=== PATIENT | female | born 1985 | race Caucasian/White ===

== ENCOUNTER → 2017-02-02 | Outpatient (CLI) | payer BC ==
[~2017-02-02] MED LIST: ACYC400T PO; BCPILLS PO; SUMA50TA15 PO; TRIA37.5 PO
[2017-02-02 14:52] LABS: BASO % 0.6 %; BASO ABS # 0.06 K/uL (0-0.2); COMPLETE YES; EOS % 2.4 %; HEMATOCRIT 40.7 % (37-47); IG% 0.2 %; LYMPH % 23.9 %; LYMPH ABS # 2.37 K/uL (1.2-3.4); MEAN CELL VOLUME 84.3 fL (80-100); MEAN CORPUSCULAR HEMOGLOBIN 28.4 pg (25-34); MEAN CORPUSCULAR HGB CONC 33.7 g/dl (32-36); MEAN PLATELET VOLUME 10.6 fL (7.4-10.4); NEUT % 63.9 %; PLATELET COUNT 337 K/uL (130-400); RED BLOOD COUNT 4.83 M/uL (4.2-5.4); WHITE BLOOD COUNT 9.93 K/uL (4.8-10.8)
[2017-02-02 14:53] LABS: ALT/SGPT 23 U/L (12-78); AST/SGOT 8 U/L (15-37); BLOOD UREA NITROGEN 11 mg/dl (7-18); BUN/CREATININE RATIO 11.2 (10-20); CALCIUM 8.7 mg/dl (8.5-10.1); CARBON DIOXIDE 25 mmol/L (21-32); CHLORIDE 108 mmol/L (98-107); GLUCOSE 88 mg/dl (70-99); POTASSIUM 3.6 mmol/L (3.5-5.1); SODIUM 141 mmol/L (136-145)
[2017-02-02 15:03] LABS: ALB/GLOB RATIO 0.9 (0.9-2); ALKALINE PHOSPHATASE 72 U/L (45-117)
== END | disposition home or self-care (01) ==
LOC: C.LAB1850 13:27
PROVIDERS: ATTEND Internal Medicine
DX: M79.89 Other specified soft tissue disorders (principal)

== ENCOUNTER 2017-03-22 18:08 | Inpatient (IN) | payer BC ==
[~2017-03-22] VITALS: Ht 157.5 cm; Wt 97.5 kg
[~2017-03-22 18:08] MED LIST changes: -ACYC400T PO; -SUMA50TA15 PO
[2017-03-22] MEDS ORDERED: ONDANSETRON INJ 2 MG/ML 2 ML VIAL IV STA ×2 (18:39→21:15)
[2017-03-22] MEDS ORDERED: MoRPHine SULFATE 10 MG/ML CARP/VIAL IV STA (18:39)
[2017-03-22] MEDS ORDERED: SODIUM CHLORIDE 0.9% 1000ML 1,000 ML IV ONE (18:45)
[2017-03-22] MEDS ORDERED: ACETAMINOPHEN IV 100 ML IV ONE (18:45)
[2017-03-22] MEDS ORDERED: SUMA50TA15 PO (19:32)
--- NOTE | 2017-03-22 19:44 | DIAGNOSTIC IMAGING REPORT ---
HEAD CT NONCONTRAST CT DOSE: 691.05 mGy.cm HISTORY: Worst headache of life TECHNIQUE: Multiaxial CT images of the head were performed without the use of intravenous contrast. Comparison: None. Findings: The paranasal sinuses and mastoid air cells are clear. The calvarium and skull base are intact. The ventricles and sulci are within normal limits. There is no mass, hematoma, midline shift, or acute infarct. Impression: No acute intracranial abnormality. Electronically signed by: Joshua Sheth M.D. 03/22/2017 7:43 PM Dictated Date/Time: 03/22/2017 7:41 PM
[2017-03-22 20:04] LABS: URINE APPEARANCE CLEAR (CLEAR); URINE BILIRUBIN NEG (NEG); URINE COLOR YELLOW; URINE NITRITE NEG (NEG); URINE PH 7.5 (4.5-7.5); URINE SPECIFIC GRAVITY 1.003 (1.000-1.030); UROBILINOGEN NEG (NEG); ZZUR CULT IF INDIC CLEAN CATCH NO
[2017-03-22 20:13] LABS: MANUAL MICROSCOPIC REQUIRED? NO; REVIEW REQ? NO
[2017-03-22 20:20] LABS: HEMATOCRIT 39.5 % (37-47); MEAN CELL VOLUME 85.5 fL (80-100); MEAN CORPUSCULAR HEMOGLOBIN 28.4 pg (25-34); MEAN CORPUSCULAR HGB CONC 33.2 g/dl (32-36); PLATELET COUNT 322 K/uL (130-400); RED BLOOD COUNT 4.62 M/uL (4.2-5.4)
[2017-03-22] MEDS ORDERED: HYDROmorphone INJ 0.5 MG/0.5 ML SYR IV STA (20:24)
[2017-03-22 20:38] LABS: BUN/CREATININE RATIO 10.8 (10-20); CALCIUM 8.6 mg/dl (8.5-10.1); CREATININE 0.86 mg/dl (0.60-1.20); MAGNESIUM 1.9 mg/dl (1.8-2.4); POTASSIUM 3.1 mmol/L (3.5-5.1)
[2017-03-22 20:42] LABS: BASO % 0.8 %; BASO ABS # 0.08 K/uL (0-0.2); COMPLETE YES; IG% 0.2 %; LYMPH % 21.1 %; LYMPH ABS # 2.05 K/uL (1.2-3.4); MONO % 7.7 %; NEUT % 69.2 %
[2017-03-22 20:43] LABS: PARTIAL THROMBOPLASTIN RATIO 1.1; PROTHROMBIN TIME (PATIENT) 10.5 SECONDS (9.0-12.0)
[2017-03-22 20:49] LABS: ALB/GLOB RATIO 0.9 (0.9-2); THYROID STIMULATING HORMONE 1.32 uIu/ml (0.300-4.500)
[2017-03-22 21:43] LABS: LYME DISEASE AB IGG NEG (NEG); LYME DISEASE AB IGM NEG (NEG)
--- NOTE | 2017-03-22 22:15 | EMERGENCY ROOM VISIT NOTE ---
ED Visit Note First contact with patient: 23:40 Lumbar Puncture Indication: Intractable headache. Verbal consent was obtained after the risks and benefits were explained. The risks of the procedure are less than the risks of NOT performing the procedure. A time out was taken and the correct patient and site identified. The patient was placed in the left lateral decubitus position and the back was prepped with betadine and draped in the standard fashion. The L3 intervertebral space was identified, anesthetized locally with 1% lidocaine without epinephrine, and the 20 gauge spinal needle was inserted through the skin with the bevel parallel to the dural fibers. After multiple attempts, no fluid was obtained. Procedure was discontinued. Patient will undergo lumbar puncture under fluoroscope with Dr. Sheth (Radiology) A bandaid was placed and the patient was placed in the supine position. The patient tolerated the procedure well and there were no complications.
[2017-03-22 23:07] LABS: CSF CHEMISTRY TUBE # 2
[2017-03-22 23:16] LABS: CSF TOTAL PROTEIN 63.9 mg/dl (15.0-45.0)
[2017-03-22 23:26] LABS: CSF COLOR COLORLESS
[2017-03-22 23:27] LABS: CSF APPEARANCE CLEAR; CSF XANTHOCHROMIC NO XANTHOCHROMIA
[2017-03-22] MEDS ORDERED: VANCOMYCIN INJ 1,000 MG in SODIUM CHLORIDE 0.9% 250ML 250 ML IV STA (23:30)
[2017-03-22] MEDS ORDERED: CEFTRIAXONE SOD INJ 1 GM ADDVIAL IV STA (23:30)
[2017-03-22] MEDS ORDERED: CEFTRIAXONE SOD INJ 2000 MG in DEXTROSE 5% 50ML IV STA (23:40)
[2017-03-23] VITALS (7 sets, daily range): BP systolic 103–117; BP diastolic 64–75; PULSE 73–96; TEMP 36.5–37.3; O2SAT 92–97; Ht 157.5 cm; Wt 97.5 kg
[2017-03-23] MEDS ORDERED: DEXAMETHASONE SOD INJ 4 MG/ML VIAL IV STA (00:01)
[2017-03-23] MEDS ORDERED: ACYCLOVIR SOD IV STA (00:08)
[2017-03-23] MEDS ORDERED: DEXTROSE 5% IV STA (00:08)
[2017-03-23] MEDS ORDERED: HYDROmorphone INJ 0.5 MG/0.5 ML SYR IV PRN (00:15)
[2017-03-23] MEDS ORDERED: ACETAMINOPHEN 325 MG TAB PO PRN (00:15)
[2017-03-23] MEDS ORDERED: HYDROmorphone INJ 2 MG/ML SYR/VIAL IV PRN (00:15)
[2017-03-23] MEDS ORDERED: DEXTROSE 5% IV SCH (00:15)
[2017-03-23] MEDS ORDERED: HYDROmorphone INJ 1 MG/ML SYR IV PRN (00:15)
[2017-03-23] MEDS ORDERED: ONDANSETRON INJ 2 MG/ML 2 ML VIAL IV PRN (00:15)
[2017-03-23] MEDS ORDERED: ZOLPIDEM TARTRATE 5 MG TAB PO PRN (00:15)
[2017-03-23] MEDS ORDERED: ACYCLOVIR SOD IV SCH (00:15)
[2017-03-23] MEDS ORDERED: VANCOMYCIN 1GM/270ML NSS ONE (00:23)
--- NOTE | 2017-03-23 00:24 | EMERGENCY ROOM VISIT NOTE ---
History First contact with patient: 18:34 Chief Complaint: HEADACHE Stated Complaint: MIGRAINE LIKE SYM,CAN'T OPEN EYE,LIGHT SENSITIVITY History of Present Illness The patient is a 32 year old female who presents to the Emergency Room with complaints of severe headache and neck pain that began approximately 16 hours ago. The patient states that she awoke from sleep with her headache. She does not have a history of migraines and states this is the worst headache she has ever had. She is light sensitive. The patient does not report fever or chills. No chest pain, chest tightness, shortness of breath, or abdominal pain. No rash. The patient went to her primary care physician today and was given 2 doses of Imitrex which did not improve her symptoms. The patient now presents to the ER for further management. She rates her current discomfort a 10/10. Review of Systems More than 10 systems were reviewed and otherwise negative with the exception of history of present illness. Past Medical/Surgical History Hypertension Family History No pertinent family history Social History Smoking Status: Never Smoker Alcohol Use: occasionally Marital Status: Housing Status: lives with family Occupation Status: employed Current/Historical Medications Scheduled Sumatriptan Succinate (Imitrex), 50 MG PO PRN Triamterene/Hctz (Dyazide 37.5MG/25MG), 1 TAB PO DAILY Allergies Coded Allergies: Pertussis Vaccine (Verified Allergy, Severe, AIRWAY CLOSES, HIVES, EDEMA, 03/22/17) Sulfa Drugs (Verified Allergy, Severe, AIRWAY CLOSES, 03/22/17) Physical Exam Vital Signs Date Time Temp Pulse Resp B/P Pulse Ox O2 Delivery O2 Flow Rate FiO2 03/22/17 23:00 70 16 110/67 96 Room Air 03/22/17 22:03 64 16 125/76 96 Room Air 03/22/17 20:32 81 16 115/78 95 Room Air 03/22/17 19:29 86 24 139/82 100 Room Air 03/22/17 18:21 37.4 95 20 123/68 98 Room Air Pain Rating (0-10): 4.0 Physical Exam VITALS: Vitals are noted on the nurse's note and reviewed by myself. Vital signs stable. GENERAL: Ill appearing white female resting in a darkened emergency department room. She is moderate to severe discomfort secondary to her stated complaint. She is unable to be comfortable in her ER bed. She is photophobic. HEAD: Normocephalic atraumatic. NECK: Supple without nuchal rigidity. No lymphadenopathy. No thyromegaly. Cervical spine is with generalized tenderness. HEART: Regular rate and rhythm without murmurs gallops or rubs. LUNGS: Clear to auscultation bilaterally without wheezes, rales or rhonchi. No retractions or accessory muscle use. ABDOMEN: Positive normal bowel sounds x 4. Soft, nontender, without masses or organomegaly. No guarding or rebound tenderness. MUSCULOSKELETAL: No muscle atrophy, erythema, or edema noted. Full range of motion without joint tenderness in all extremities. NEURO: Patient was alert and oriented to person place and time. CN II through XII grossly intact. Deep tendon reflexes 2+ throughout. No focal neurological deficits SKIN: The skin was without rashes, erythema, edema, or bruising. Capillary reflex less than 2 seconds. Medical Decision & Procedures ER Provider Diagnostic Interpretation: HEAD CT NONCONTRAST CT DOSE: 691.05 mGy.cm HISTORY: Worst headache of life TECHNIQUE: Multiaxial CT images of the head were performed without the use of intravenous contrast. Comparison: None. Findings: The paranasal sinuses and mastoid air cells are clear. The calvarium and skull base are intact. The ventricles and sulci are within normal limits. There is no mass, hematoma, midline shift, or acute infarct. Impression: No acute intracranial abnormality. Laboratory Results 03/22/17 20:06 Red Blood Count 4.62, Mean Corpuscular Volume 85.5, Mean Corpuscular Hemoglobin 28.4, Mean Corpuscular Hemoglobin Concent 33.2, Mean Platelet Volume 10.0, Neutrophils (%) (Auto) 69.2, Lymphocytes (%) (Auto) 21.1, Monocytes (%) (Auto) 7.7, Eosinophils (%) (Auto) 1.0, Basophils (%) (Auto) 0.8, Neutrophils # (Auto) 6.70, Lymphocytes # (Auto) 2.05, Monocytes # (Auto) 0.75, Eosinophils # (Auto) 0.10, Basophils # (Auto) 0.08 03/22/17 20:06 Test 03/22/17 19:20 03/22/17 20:06 03/22/17 22:46 Urine Color YELLOW Urine Appearance CLEAR (CLEAR) Urine pH 7.5 (4.5-7.5) Urine Specific [place] 1.003 (1.000-1.030) Urine Protein NEG (NEG) Urine Glucose (UA) NEG (NEG) Urine Ketones NEG (NEG) Urine Occult Blood NEG (NEG) Urine Nitrite NEG (NEG) Urine Bilirubin NEG (NEG) Urine Urobilinogen NEG (NEG) Urine Leukocyte Esterase TRACE (NEG) Urine WBC (Auto) 1-5 /hpf (0-5) Urine RBC (Auto) 0-4 /hpf (0-4) Urine Hyaline Casts (Auto) 0 /lpf (0-5) Urine Epithelial Cells (Auto) 10-20 /lpf (0-5) Urine Bacteria (Auto) NEG (NEG) Urine Test NEG (NEG) White Blood Count 9.70 K/uL (4.8-10.8) Red Blood Count 4.62 M/uL (4.2-5.4) Hemoglobin 13.1 g/dL (12.0-16.0) Hematocrit 39.5 % (37-47) Mean Corpuscular Volume 85.5 fL (80-100) Mean Corpuscular Hemoglobin 28.4 pg (25-34) Mean Corpuscular Hemoglobin Concent 33.2 g/dl (32-36) Platelet Count 322 K/uL (130-400) Mean Platelet Volume 10.0 fL (7.4-10.4) Neutrophils (%) (Auto) 69.2 % Lymphocytes (%) (Auto) 21.1 % Monocytes (%) (Auto) 7.7 % Eosinophils (%) (Auto) 1.0 % Basophils (%) (Auto) 0.8 % Neutrophils # (Auto) 6.70 K/uL (1.4-6.5) Lymphocytes # (Auto) 2.05 K/uL (1.2-3.4) Monocytes # (Auto) 0.75 K/uL (0.11-0.59) Eosinophils # (Auto) 0.10 K/uL (0-0.5) Basophils # (Auto) 0.08 K/uL (0-0.2) RDW Standard Deviation 39.9 fL (36.4-46.3) RDW Coefficient of Variation 12.8 % (11.5-14.5) Immature Granulocyte % (Auto) 0.2 % Immature Granulocyte # (Auto) 0.02 K/uL (0.00-0.02) Red Blood Cell Morphology Unremarkable Prothrombin Time 10.5 SECONDS (9.0-12.0) Prothromb Time International Ratio 1.0 (0.9-1.1) Activated Partial Thromboplast Time 28.6 SECONDS (21.0-31.0) Partial Thromboplastin Ratio 1.1 Anion Gap 8.0 mmol/L (3-11) Est Creatinine Clear Calc Drug Dose 97.6 ml/min Estimated GFR () 103.6 Estimated GFR (Non- 89.4 BUN/Creatinine Ratio 10.8 (10-20) Calcium Level 8.6 mg/dl (8.5-10.1) Magnesium Level 1.9 mg/dl (1.8-2.4) Total Bilirubin 0.6 mg/dl (0.2-1) Aspartate Amino Transf (AST/SGOT) 12 U/L (15-37) Alanine Aminotransferase (ALT/SGPT) 27 U/L (12-78) Alkaline Phosphatase 82 U/L (45-117) Total Protein 7.1 gm/dl (6.4-8.2) Albumin 3.4 gm/dl (3.4-5.0) Globulin 3.7 gm/dl (2.5-4.0) Albumin/Globulin Ratio 0.9 (0.9-2) Thyroid Stimulating Hormone (TSH) 1.320 uIu/ml (0.300-4.500) Lyme Disease IgG Antibody NEG (NEG) Lyme Disease IgM Antibody NEG (NEG) CSF Color COLORLESS CSF Appearance CLEAR CSF WBC 100 /uL (0-5) CSF RBC 7 /uL (0) CSF Xanthrochromic NO XANTHOCHROMIA CSF Cell Count Tube # 4 CSF Chemistry Tube # 2 CSF Glucose 54 mg/dl (40-70) CSF Total Protein 63.9 mg/dl (15.0-45.0) Medications Administered Medications (Trade) Dose Ordered Sig/Les Route Start Time Stop Time Status Last Admin Dose Admin Sodium Chloride (Nss 1000ml) 1,000 ml @ 999 mls/hr Q1H1M ONCE IV 03/22/17 18:45 03/22/17 19:45 DC 03/22/17 19:19 999 MLS/HR Ondansetron HCl (Zofran Inj) 4 mg NOW STAT IV 03/22/17 18:39 03/22/17 18:41 DC 03/22/17 19:20 4 MG Morphine Sulfate 6 mg 6 mg NOW STAT IV 03/22/17 18:39 03/22/17 18:41 DC 03/22/17 19:20 6 MG Acetaminophen (Ofirmev Iv) 100 ml @ 400 mls/hr NOW ONCE IV 03/22/17 18:45 03/22/17 18:59 DC 03/22/17 19:21 400 MLS/HR Hydromorphone HCl (Dilaudid Inj) 0.5 mg NOW STAT IV 03/22/17 20:24 03/22/17 20:25 DC 03/22/17 20:32 0.5 MG Ondansetron HCl (Zofran Inj) 4 mg NOW STAT IV 03/22/17 21:15 03/22/17 21:16 DC 03/22/17 21:15 4 MG ED Course Physical exam and history were performed. Nursing notes and EMR were reviewed. Patient appears to have a severe headache that began earlier this morning. The patient appears quite uncomfortable on examination. She does not have a history of migraines and states this is the worst headache that she has ever had. The patient is afebrile and does not appear with encephalitis. IV access was established and labs were obtained. Patient was hydrated and medicated as above. CT scan was performed. The patient's blood work is as above and was reviewed. She does not have a significantly elevated white blood cell count or gross anemia, bandemia, or significant electrolyte imbalance. Transaminases were nondiagnostic. The patient CT scan is as above and does not show evidence of acute process. The patient continued to be in moderate discomfort despite being treated with morphine. Because of the collecting if her IV Dilaudid, which made her nauseated, and she did require additional Zofran. The patient case was discussed with my attending physician, Dr. Tenorio, who also independently evaluated the patient. Clinically we have concern for the patient's presentation. I had a lengthy discussion with the patient regarding a lumbar puncture, as this was felt to be the only way to rule in or rule out meningitis. I discussed the risks versus benefits of the procedure, and adequately answered both her and her 's questions. After doing this the patient did consent to the procedure. Lumbar puncture was attempted by Dr. Tenorio. Please see his note regarding the procedure. In short, there was difficulty with initial lumbar puncture, and we did elect to perform the LP under fluoroscopy. The lumbar puncture results do show an elevated protein and elevated white blood cell count in the CSF. There is no significant blood. Based on these results we have concern for meningitis. Her conjunctivae is likely viral, but culture and Gram stain are pending at the time of this dictation. The patient was started on IV Rocephin and vancomycin immediately. She was placed under contact precautions. The case was discussed with the on-call [facility] hospitalist, who agreed to evaluate the patient here in the emergency department. Please see their dictation for further patient course, plan, and disposition. The chart was completed utilizing [employer] Speech Voice Recognition Software. Grammatical errors, random word insertions, pronoun errors, and incomplete sentences are an occasional consequence of this system due to software limitations, ambient noise, and hardware issues. Any formal questions or concerns about the content, text, or information contained within the body of this dictation should be directly addressed to the provider for clarification. . Medical Decision The differential diagnosis includes, but is not limited to: acute intracranial bleed, meningitis, encephalitis, mass or mass effect, sinusitis, infection, tumor, headache, temporal arteritis and carbon monoxide exposure, and migraine. Impression Primary Impression: Meningitis Departure Information Referrals RV. Nye MD (PCP) Patient Instructions My [facility]
[2017-03-23 00:30] LABS: CSF MONONUC RELAT 71.6 %
[2017-03-23] MEDS ORDERED: VANCOMYCIN INJ 1,300 MG in SODIUM CHLORIDE 0.9% 250ML 250 ML IV STA (01:27)
[2017-03-23] MEDS: NSS + 20MEQ KCL 1000ML 1,000 ML IV SCH ×3 (02:03→20:25)
[2017-03-23] MEDS ORDERED: ACYCLOVIR CONSULT ACTIVE PRN (02:30)
[2017-03-23] MEDS ORDERED: VANCOMYCIN CONSULT ACTIVE PRN (02:45)
--- NOTE | 2017-03-23 03:36 | History and Physical ---
History & Physical Date & Time of Service: March 23, 2017 at 03:27 Chief Complaint: Hypokalemia, Meningitis Primary Care Physician: RV. Nye MD History of Present Illness Source: patient, spouse The patient is a 32-year-old female who presents to the emergency department with complaint of severe headache and neck pain that initially woke her from sleep, and that began about 16 hours prior to arrival. She has developed slight sensitivity. She was seen by her PCP today and given 2 doses of Imitrex with no improvement in symptoms. She does not usually get headaches, and reports that this is the worst headache that she's ever had. She has not had any recent travels or known sick exposures, she comes into contact with the public frequently at her job. Social History Smoking Status: Never Smoker Smokeless Tobacco Use: No Alcohol Use: none Drug Use: none Marital Status: Housing status: lives with family Occupational Status: employed Immunizations History of Influenza Vaccine: Unknown History of Tetanus Vaccine?: Unknown Multi-Drug Resistant Organisms History of MDRO: No Allergies Coded Allergies: Pertussis Vaccine (Verified Allergy, Severe, AIRWAY CLOSES, HIVES, EDEMA, 03/22/17) Sulfa Drugs (Verified Allergy, Severe, AIRWAY CLOSES, 03/22/17) Home Medications Scheduled Sumatriptan Succinate (Imitrex), 50 MG PO PRN Triamterene/Hctz (Dyazide 37.5MG/25MG), 1 TAB PO DAILY Review of Systems Constitutional: No chills, No fatigue, No fever, No problem reported, No sweats , No weakness, No weight loss Eyes: No diplopia, No discharge, No eye pain, No problem reported, No redness, No worsening of vision ENT: No dental problems, No hearing loss, No nasal symptoms, No problem reported, No sore throat, No tinnitus, No trouble swallowing, No unusual epistaxis Respiratory: No cough, No dyspnea at rest, No dyspnea on exertion, No hemoptysis, No problem reported, No shortness of breath, No sputum, No wheezing Cardiovascular: No PND, No chest pain, No claudication, No edema, No orthopnea , No palpitations, No problem reported Abdomen: No GI bleeding, No constipation, No diarrhea, No nausea, No pain, No problem reported, No vomiting Musculoskeletal: No calf pain, No joint pain, No muscle pain, No problem reported, No swelling Genitourinary - Female: No dysmenorrhea, No dysuria, No hematuria, No menorrhagia, No metrorrhagia, No , No problem reported, No rash, No urinary frequency, No urinary incontinence, No urinary retention, No urinary urgency, No vaginal bleeding, No vaginal discharge, No vaginal itching, No vulvodynia Neurologic: No balance problems, No memory loss, No numbness/tingling, No paralysis, No problem reported, No vertigo, No weakness Psychiatric: No anhedonism, No anxiety, No depression symptoms, No insomnia, No problem reported, No substance abuse Endocrine: No excessive thirst, No excessive urination, No fatigue, No problem reported Hematologic / Lymphatic: No abnormal bleeding/bruising, No clotting problems, No night sweats, No problem reported, No swollen lymph nodes Integumentary: No bleeding, No color change, No itch, No new/changing skin lesions, No problem reported, No rash Allergic / Immunologic: No environmental allergies, No food allergies, No frequent infections, No hives, No pet sensitivities, No poor healing, No problem reported, No prolonged convalescence, No seasonal allergies Physical Exam Vital Signs Date Time Temp Pulse Resp B/P Pulse Ox O2 Delivery O2 Flow Rate FiO2 03/23/17 01:31 Room Air 03/23/17 00:50 36.7 70 18 103/65 96 Room Air 03/22/17 23:00 70 16 110/67 96 Room Air 03/22/17 22:03 64 16 125/76 96 Room Air 03/22/17 20:32 81 16 115/78 95 Room Air 03/22/17 19:29 86 24 139/82 100 Room Air 03/22/17 18:21 37.4 95 20 123/68 98 Room Air General Appearance: + moderate distress Head: normocephalic, atraumatic Eyes: normal inspection, EOMI, sclerae normal, + pertinent finding (sensitive to light.) ENT: normal ENT inspection, hearing grossly normal, pharynx normal Neck: no adenopathy, thyroid normal, no JVD, no carotid bruits, trachea midline , + pertinent finding (tender on palpation posteriorly) Respiratory/Chest: chest non-tender, lungs clear, normal breath sounds, no respiratory distress, no accessory muscle use Cardiovascular: regular rate, rhythm, no edema, no gallop, no JVD, no murmur, normal peripheral pulses Abdomen/GI: normal bowel sounds, non tender, soft, no organomegaly, no pulsatile mass Back: normal inspection, no CVA tenderness, no muscle spasm, normal range of motion Extremities/Musculoskelatal: normal inspection, no calf tenderness, normal capillary refill, no pedal edema, normal range of motion, non-tender 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, no motor/sensory deficits, alert, normal mood/affect, normal reflexes, oriented x 3 Skin: normal color, warm/dry, no rash Lymphatic: no adenopathy Diagnostics Laboratory Results Results Past 24 Hours Test 03/22/17 19:20 03/22/17 20:06 03/22/17 22:46 Range/Units Urine Color YELLOW Urine Appearance CLEAR CLEAR Urine pH 7.5 4.5-7.5 Urine Specific [place] 1.003 1.000-1.030 Urine Protein NEG NEG Urine Glucose (UA) NEG NEG Urine Ketones NEG NEG Urine Occult Blood NEG NEG Urine Nitrite NEG NEG Urine Bilirubin NEG NEG Urine Urobilinogen NEG NEG Urine Leukocyte Esterase TRACE NEG Urine WBC (Auto) 1-5 0-5 /hpf Urine RBC (Auto) 0-4 0-4 /hpf Urine Hyaline Casts (Auto) 0 0-5 /lpf Urine Epithelial Cells (Auto) 10-20 0-5 /lpf Urine Bacteria (Auto) NEG NEG Urine Test NEG NEG White Blood Count 9.70 4.8-10.8 K/uL Red Blood Count 4.62 4.2-5.4 M/uL Hemoglobin 13.1 12.0-16.0 g/dL Hematocrit 39.5 37-47 % Mean Corpuscular Volume 85.5 80-100 fL Mean Corpuscular Hemoglobin 28.4 25-34 pg Mean Corpuscular Hemoglobin Concent 33.2 32-36 g/dl Platelet Count 322 130-400 K/uL Mean Platelet Volume 10.0 7.4-10.4 fL Neutrophils (%) (Auto) 69.2 % Lymphocytes (%) (Auto) 21.1 % Monocytes (%) (Auto) 7.7 % Eosinophils (%) (Auto) 1.0 % Basophils (%) (Auto) 0.8 % Neutrophils # (Auto) 6.70 1.4-6.5 K/uL Lymphocytes # (Auto) 2.05 1.2-3.4 K/uL Monocytes # (Auto) 0.75 0.11-0.59 K/uL Eosinophils # (Auto) 0.10 0-0.5 K/uL Basophils # (Auto) 0.08 0-0.2 K/uL RDW Standard Deviation 39.9 36.4-46.3 fL RDW Coefficient of Variation 12.8 11.5-14.5 % Immature Granulocyte % (Auto) 0.2 % Immature Granulocyte # (Auto) 0.02 0.00-0.02 K/uL Red Blood Cell Morphology Unremarkable Prothrombin Time 10.5 9.0-12.0 SECONDS Prothromb Time International Ratio 1.0 0.9-1.1 Activated Partial Thromboplast Time 28.6 21.0-31.0 SECONDS Partial Thromboplastin Ratio 1.1 Sodium Level 142 136-145 mmol/L Potassium Level 3.1 3.5-5.1 mmol/L Chloride Level 108 98-107 mmol/L Carbon Dioxide Level 26 21-32 mmol/L Anion Gap 8.0 3-11 mmol/L Blood Urea Nitrogen 9 7-18 mg/dl Creatinine 0.86 0.60-1.20 mg/dl Est Creatinine Clear Calc Drug Dose 97.6 ml/min Estimated GFR () 103.6 Estimated GFR (Non- 89.4 BUN/Creatinine Ratio 10.8 10-20 Random Glucose 98 70-99 mg/dl Calcium Level 8.6 8.5-10.1 mg/dl Magnesium Level 1.9 1.8-2.4 mg/dl Total Bilirubin 0.6 0.2-1 mg/dl Aspartate Amino Transf (AST/SGOT) 12 15-37 U/L Alanine Aminotransferase (ALT/SGPT) 27 12-78 U/L Alkaline Phosphatase 82 45-117 U/L Total Protein 7.1 6.4-8.2 gm/dl Albumin 3.4 3.4-5.0 gm/dl Globulin 3.7 2.5-4.0 gm/dl Albumin/Globulin Ratio 0.9 0.9-2 Thyroid Stimulating Hormone (TSH) 1.320 0.300-4.500 uIu/ml Lyme Disease IgG Antibody NEG NEG Lyme Disease IgM Antibody NEG NEG CSF Color COLORLESS CSF Appearance CLEAR CSF WBC 100 0-5 /uL CSF RBC 7 0 /uL CSF Xanthrochromic NO XANTHOCHROMIA CSF Cell Count Tube # 4 CSF Mononuclear WBCs % 71.6 % CSF Polynuclear WBCs (%) 28.4 % CSF Chemistry Tube # 2 CSF Glucose 54 40-70 mg/dl CSF Total Protein 63.9 15.0-45.0 mg/dl Microbiology Results 03/22/17 Gram Stain - Preliminary, Resulted 03/22/17 CSF Culture, Resulted Pending Diagnostic Radiology Patient Name: CHAI DODD Unit Number: [id number] Dictated: 03/22/171940 Transcribed: 03/22/171940 MS Printed Date/Time: [~ rep prt dt]/[~ rep prt tm] [~ rep ct labl] - [~ rep ct ivnm] [facility] [place] [address] Dictated: 03/22/171940 Transcribed: 03/22/171940 MS Printed Date/Time: [~ rep prt dt]/[~ rep prt tm] [~ rep ct labl] - [~ rep ct ivnm] [~ rep ct add3]] HEAD CT NONCONTRAST CT DOSE: 691.05 mGy.cm HISTORY: Worst headache of life TECHNIQUE: Multiaxial CT images of the head were performed without the use of intravenous contrast. Comparison: None. Findings: The paranasal sinuses and mastoid air cells are clear. The calvarium and skull base are intact. The ventricles and sulci are within normal limits. There is no mass, hematoma, midline shift, or acute infarct. Impression: No acute intracranial abnormality. Electronically signed by: Joshua Sheth M.D. 03/22/2017 7:43 PM Dictated Date/Time: 03/22/2017 7:41 PM The status of this report is Signed. Draft = Not yet reviewed or approved by Radiologist. Signed = Reviewed and approved by Radiologist. <AttendingPhy></AttendingPhy> <FamilyPhy>RV. Nye MD</ FamilyPhy> <PrimaryPhy>RV. Nye MD</PrimaryPhy> <UnitNumber> [id number]</UnitNumber> <VisitNumber>[id number]</VisitNumber> <PatientName> CHAI DODD</PatientName> <DateOfBirth>1985</DateOfBirth> < Location>[facility]</Location> <ServiceDate>03/22/17</ServiceDate> <MNE>ESINDI</MNE> <OrderingPhy>Jimmy Alfaro PA-C</OrderingPhy> <OrderingPhyMNE>f rep ord dr parker</ OrderingPhyMNE> <DictatingPhyMNE>f rep dict dr parker</DictatingPhyMNE> <CCListMNE> f rep ct elena</CCListMNE> <AdmittingPhyMNE>f pt admit dr parker</AdmittingPhyMNE> < AttendingPhyMNE>f pt attend dr parker</AttendingPhyMNE> <ConsultingPhyMNE>f pt consult dr parker</ConsultingPhyMNE> <FamilyPhyMNE>f pt fam dr parker</FamilyPhyMNE> <OtherPhyMNE>f pt other dr parker</OtherPhyMNE> < PrimaryPhyMNE>f pt prim care dr parker</PrimaryPhyMNE> <ReferringPhyMNE>f pt referring dr parker</ReferringPhyMNE> Impression Assessment and Plan Meningitis, likely viral--her clinical symptoms, and LP results are suggestive of meningitis. The patient be admitted to the telemetry unit for close monitoring. She's given Decadron 10 mg IV, ceftriaxone 2 g IV, vancomycin IV, and acyclovir 930 mg IV, and Dilaudid IV in the ED. She'll be continued on Decadron 4 mg IV every 6 hours, ceftriaxone 2 g IV every 12 hours, vancomycin IV per renal dosing, acyclovir 930 mg IV every 8 hours, and Dilaudid 0.5-1 mg IV every 2 hours when necessary. We'll consult infectious disease. Dehydration/hypokalemia--triamterene/HCTZ, and place on normal saline with potassium chloride 20 mEq at 100 ML's per hour. Repeat PRP and magnesium level in the a.m. Level of Care Telemetry Advanced Directives Existing Advance Directive: No Existing Living Will: No Existing Power of Runner Man: No Resuscitation Status FULL RESUSCITATION VTE Prophylaxis VTE Risk Assessment Done? Y/N: Yes Risk Level: Moderate Given or contraindicated: SCD's Social Service Consult None Apply
[2017-03-23] MEDS: DEXAMETHASONE INJ 4 MG in SYRINGE 0 ML IV SCH ×4 (06:23→23:15)
[2017-03-23 06:41] LABS: BASO % 0.2 %; BASO ABS # 0.02 K/uL (0-0.2); COMPLETE YES; HEMATOCRIT 39.7 % (37-47); IG% 0.1 %; LYMPH % 11.4 %; MEAN CELL VOLUME 86.9 fL (80-100); MEAN CORPUSCULAR HEMOGLOBIN 29.1 pg (25-34); MEAN CORPUSCULAR HGB CONC 33.5 g/dl (32-36); MEAN PLATELET VOLUME 10.2 fL (7.4-10.4); MONO % 1.2 %; NEUT % 87.1 %; PLATELET COUNT 309 K/uL (130-400); RED BLOOD COUNT 4.57 M/uL (4.2-5.4); WHITE BLOOD COUNT 9.69 K/uL (4.8-10.8)
[2017-03-23 07:20] LABS: BUN/CREATININE RATIO 9.1 (10-20); CALCIUM 8.7 mg/dl (8.5-10.1); CREATININE 0.95 mg/dl (0.60-1.20); MAGNESIUM 2.1 mg/dl (1.8-2.4); POTASSIUM 3.7 mmol/L (3.5-5.1)
--- NOTE | 2017-03-23 08:59 | DIAGNOSTIC IMAGING REPORT ---
FLUOROSCOPICALLY GUIDED LUMBAR PUNCTURE CLINICAL HISTORY: Headache headache FLUOROSCOPY TIME: 10 seconds PROCEDURE: The procedure, risks and benefits were discussed with the patient including the risk of spinal headache, bleeding and infection. The patient agreed to the procedure and informed written consent was obtained. The procedure was performed by Dr. Sheth following a timeout. The left L3-L4 interlaminar space was targeted. Skin overlying the space was prepped and draped in the usual sterile fashion and local anesthesia was achieved with 1% lidocaine. Under intermittent fluoroscopic guidance, a 20-gauge x 3 1/2 in. Sprotte needle was inserted into the thecal sac. A total of 10 cc of clear, colorless cerebral spinal fluid was obtained and spread amongst 4 vials. The patient tolerated the procedure well. There were no immediate complications. The specimens were sent to the laboratory at the request of the referring physician. IMPRESSION: Successful fluoroscopic guided lumbar puncture with removal of 10 cc of clear, colorless cerebral spinal fluid. No immediate complications. Electronically signed by: Joshua Sheth M.D. 03/23/2017 8:57 AM Dictated Date/Time: 03/23/2017 8:56 AM
--- NOTE | 2017-03-23 09:04 | Pharmacy Progress Note ---
Pharmacy Antibiotic Consult Date of Service: March 23, 2017. Pharmacy Dosing Scope Pharmacy is consulted to initiate vancomycin IV dosing therapy, order appropriate labs and adjust drug dose/frequency. Subjective The patient is a 32 year old female admitted on March 23, 2017 at 00:47. Objective Height (Feet): 5 Height (Inches): 2.00 Weight (Kilograms): 95.300 Lab Results (24hrs): Laboratory Tests Test 03/22/17 20:06 03/23/17 06:17 BUN/Creatinine Ratio 10.8 9.1 Blood Urea Nitrogen 9 mg/dl 9 mg/dl Creatinine 0.86 mg/dl 0.95 mg/dl White Blood Count 9.70 K/uL 9.69 K/uL Red Blood Count 4.62 M/uL 4.57 M/uL Hemoglobin 13.1 g/dL 13.3 g/dL Hematocrit 39.5 % 39.7 % Mean Corpuscular Volume 85.5 fL 86.9 fL Mean Corpuscular Hemoglobin 28.4 pg 29.1 pg Mean Corpuscular Hemoglobin Concent 33.2 g/dl 33.5 g/dl Platelet Count 322 K/uL 309 K/uL Mean Platelet Volume 10.0 fL 10.2 fL Neutrophils (%) (Auto) 69.2 % 87.1 % Lymphocytes (%) (Auto) 21.1 % 11.4 % Monocytes (%) (Auto) 7.7 % 1.2 % Eosinophils (%) (Auto) 1.0 % 0.0 % Basophils (%) (Auto) 0.8 % 0.2 % Neutrophils # (Auto) 6.70 K/uL 8.44 K/uL Lymphocytes # (Auto) 2.05 K/uL 1.10 K/uL Monocytes # (Auto) 0.75 K/uL 0.12 K/uL Eosinophils # (Auto) 0.10 K/uL 0.00 K/uL Basophils # (Auto) 0.08 K/uL 0.02 K/uL Assessment & Plan Assessment * 32 yo F with meningitis, CSF more suggestive of viral etiology but bacterial has not been ruled out. Patient is on empiric ceftriaxone, vancomycin, and acyclovir (with dexamethasone to prevent inflammatory complications from possible S. pneumo meningitis). * Vancomycin 25 mg/kg loading dose given as a 1000 mg followed by 1300 mg dose. Based on indication and the likelihood of excellent renal function 2nd age and SCr, will be aggressive with ongoing therapy and start at 15.7 mg/kg IV q8h. * Trough prior to 4th overall dose Plan * Vancomycin 1500 mg IV q8h * Trough 03/24 @ 0130 Pharmacy will continue to follow and will adjust dose/frequency as necessary. Thank you
[2017-03-23] MEDS: VANCOMYCIN INJ 1,500 MG in SODIUM CHLORIDE 0.9% 500ML 500 ML IV SCH ×2 (09:30→20:24)
[2017-03-23] MEDS: ACYCLOVIR SOD INJ 500 MG in DEXTROSE 5% 100ML 100 ML IV SCH ×2 (09:31→18:32)
[2017-03-23] MEDS ORDERED: VANCOMYCIN INJ 1,400 MG in SODIUM CHLORIDE 0.9% 500ML 500 ML IV SCH (10:00)
--- NOTE | 2017-03-23 10:09 | Medical Consult ---
Consultation Date of Consultation: March 23, 2017. Attending Physician: Evy Hernandez M.D. Reason for Consultation: Meningitis History of Present Illness Patient is a 32 yo female who presented to the ED with concerns of worst headache of her life. She states that morning at 1:30 am she woke up with a 10/10 headache that felt like nails being driven into her head. She also started to have chills, sweats, and neck stiffness. She tried at home OTC pain medications without relief. She then presented to her PCP for concerns of headache and was prescribed 2 doses of Imitrex. She was told that if her headache did not subside with the Imitrex, to go to the ED for further evaluation, therefore she ended up here for testing. Since admission, the patient did have an LP performed which showed 100 WBC's, Glucose of 54, and mildly elevated proteins at 63.9. The patient states that she does have 2 children at home and her 10 year old daughter had a GI bug at the beginning of this week but got better after about 1-2 days. Noone else in her family has been sick. 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 The patient states that she has not experienced any N/V/D, SOB, chest pain, urinary symptoms, or periphearl edema. She has however had photosensitivity. The patient states that she is and has not had any recent new sexual partners. 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 She has not had a cold sore recently. She and her family have not traveled recently. She does not eat unpasteurized foods. Her WBC count on admission was 9.70. She did have a CT of the kash which showed no acute abnormality. Lyme screens were negative. She was started on IV Ceftriaxone, Vancomycin, and Acyclovir. CSF culture is pending. Past Medical/Surgical History Medical Problems: (1) Meningitis Status: Acute Medical Problems: (1) Hypokalemia Family History Noncontributory Social History Smoking Status: Never Smoker Smokeless Tobacco Use: No Alcohol Use: none Drug Use: none Marital Status: Housing Status: lives with family Occupation Status: employed Allergies Coded Allergies: Pertussis Vaccine (Verified Allergy, Severe, AIRWAY CLOSES, HIVES, EDEMA, 03/22/17) Sulfa Drugs (Verified Allergy, Severe, AIRWAY CLOSES, 03/22/17) Home Medications Reported Home Medications Medications Dose Route/Sig Max Daily Dose Days Date Category Imitrex (Sumatriptan Succinate) 50 Mg Tab 50 Mg PO PRN 03/22/17 Reported Dyazide 37.5MG/25MG (Triamterene/HCTZ) Cap 1 Tab PO DAILY 03/02/15 Reported Current Inpatient Medications Current Inpatient Medications Medications (Trade) Dose Ordered Sig/Les Route Start Time Stop Time Status Last Admin Dose Admin Ceftriaxone Sodium 2000 mg/ Dextrose 70 ml @ 100 mls/hr Q12H IV 03/23/17 12:00 04/02/17 11:59 Dexamethasone Sodium Phosphate 4 mg/Syringe 1 ml @ 1 mls/min Q6H IV 03/23/17 06:00 04/22/17 05:59 03/23/17 06:23 1 MLS/MIN Potassium Chloride/Sodium Chloride (Nss + 20meq KCl 1000ml) 1,000 ml @ 100 mls/hr Q10H IV 03/23/17 01:30 04/22/17 01:29 03/23/17 02:03 100 MLS/HR Acetaminophen (Tylenol Tab) 650 mg Q4H PRN PO 03/23/17 00:15 04/22/17 00:14 Zolpidem Tartrate (Ambien Tab) 5 mg HSZ PRN PO 03/23/17 00:15 04/22/17 00:14 Ondansetron HCl (Zofran Inj) 4 mg Q6H PRN IV 03/23/17 00:15 04/22/17 00:14 Hydromorphone HCl (Dilaudid Inj) 1 mg Q2H PRN IV 03/23/17 00:15 04/06/17 00:14 Hydromorphone HCl (Dilaudid Inj) 0.5 mg Q2H PRN IV 03/23/17 00:15 04/06/17 00:14 03/23/17 02:03 0.5 MG Acyclovir Sodium 1 ea 1 ea UD PRN N/A 03/23/17 02:30 04/22/17 02:29 Acyclovir Sodium/ Dextrose (Zovirax Inj/D5 100ml) 110 ml @ 100 mls/hr Q8H IV 03/23/17 10:00 04/02/17 09:59 03/23/17 09:31 100 MLS/HR Vancomycin HCl 1 ea 1 ea UD PRN N/A 03/23/17 02:45 04/22/17 02:44 Vancomycin HCl/ Sodium Chloride (Vancomycin Inj/ Nss 500ml) 530 ml @ 200 mls/hr Q8@0200,1000,1800 IV 03/23/17 10:00 04/02/17 09:59 03/23/17 09:30 200 MLS/HR Review of Systems Constitutional: + chills, + fatigue, + sweats Eyes: + problem reported (photophobia), No worsening of vision ENT: + problem reported (neck pain/stiffness), No hearing loss Respiratory: No cough, No shortness of breath Cardiovascular: No chest pain Abdomen: No diarrhea, No nausea, No pain, No vomiting Musculoskeletal: No joint pain Genitourinary - Female: No dysuria, No urinary frequency, No urinary urgency Neurologic: + problem reported (severe headache) Integumentary: No itch, No new/changing skin lesions, No rash Physical Exam Date Time Temp Pulse Resp B/P Pulse Ox O2 Delivery O2 Flow Rate FiO2 03/23/17 08:57 36.7 93 20 105/70 95 Room Air 03/23/17 04:00 Room Air 03/23/17 03:38 36.5 79 17 107/69 97 Room Air 03/23/17 01:31 Room Air 03/23/17 00:50 36.7 70 18 103/65 96 Room Air 03/22/17 23:00 70 16 110/67 96 Room Air 03/22/17 22:03 64 16 125/76 96 Room Air 03/22/17 20:32 81 16 115/78 95 Room Air 03/22/17 19:29 86 24 139/82 100 Room Air 03/22/17 18:21 37.4 95 20 123/68 98 Room Air General Appearance: no apparent distress, + obese Head: normocephalic, atraumatic Eyes: normal inspection, sclerae normal ENT: hearing grossly normal Neck: supple, trachea midline Respiratory/Chest: chest non-tender, lungs clear, normal breath sounds, no respiratory distress, no accessory muscle use Cardiovascular: regular rate, rhythm, no murmur Abdomen/GI: normal bowel sounds, non tender, soft Back: normal inspection Extremities/Musculoskelatal: normal inspection Neurologic/Psych: alert, normal mood/affect, oriented x 3 Skin: normal color, warm/dry, no rash Laboratory Results HEAD CT NONCONTRAST CT DOSE: 691.05 mGy.cm HISTORY: Worst headache of life TECHNIQUE: Multiaxial CT images of the head were performed without the use of intravenous contrast. Comparison: None. Findings: The paranasal sinuses and mastoid air cells are clear. The calvarium and skull base are intact. The ventricles and sulci are within normal limits. There is no mass, hematoma, midline shift, or acute infarct. Impression: No acute intracranial abnormality. RUN DATE: 03/23/17 [facility] LAB PAGE 1 RUN TIME: 718 Specimen Inquiry [facility]: [id number] # : [id number] AGE/SX: 32/F ROOM: [facility] REG : 03/23/[address]: Sav Smith M.D : 1985 BED: 1 DIS : STATUS: ADM IN TLOC: SPEC #: [id number] VINAYAK: 03/22/17 STATUS: RES REQ #: [id number] RECD: 03/22/[address] [facility] [address]: Jimmy Alfaro PA- C SOURCE: CSF ENTR: 03/22/[address] [facility] [address]: Regulo Chao M.D. [facility] Higgins MD ORDERED: CSF CULT/SMR COMMENTS: Comments to Infrastructure Technician TUBE#3 TUBE # TO USE FOR SPINAL FLUID CELL CULTURE= 3 Procedure Result Verified Site GRAM STAIN Final 03/23/17 RESULT MANY WBCs SEEN NO ORGANISMS SEEN CSF CULTURE PENDING Item Value Date Time Gram Stain - Final Resulted 03/22/172245 Cerebral Spinal Fluid Last 24 Hours Test 03/22/17 19:20 03/22/17 20:06 03/22/17 22:46 03/23/17 06:17 Urine Color YELLOW Urine Appearance CLEAR Urine pH 7.5 Urine Specific [place] 1.003 Urine Protein NEG Urine Glucose (UA) NEG Urine Ketones NEG Urine Occult Blood NEG Urine Nitrite NEG Urine Bilirubin NEG Urine Urobilinogen NEG Urine Leukocyte Esterase TRACE Urine WBC (Auto) 1-5 /hpf Urine RBC (Auto) 0-4 /hpf Urine Hyaline Casts (Auto) 0 /lpf Urine Epithelial Cells (Auto) 10-20 /lpf Urine Bacteria (Auto) NEG Urine Test NEG White Blood Count 9.70 K/uL 9.69 K/uL Red Blood Count 4.62 M/uL 4.57 M/uL Hemoglobin 13.1 g/dL 13.3 g/dL Hematocrit 39.5 % 39.7 % Mean Corpuscular Volume 85.5 fL 86.9 fL Mean Corpuscular Hemoglobin 28.4 pg 29.1 pg Mean Corpuscular Hemoglobin Concent 33.2 g/dl 33.5 g/dl Platelet Count 322 K/uL 309 K/uL Mean Platelet Volume 10.0 fL 10.2 fL Neutrophils (%) (Auto) 69.2 % 87.1 % Lymphocytes (%) (Auto) 21.1 % 11.4 % Monocytes (%) (Auto) 7.7 % 1.2 % Eosinophils (%) (Auto) 1.0 % 0.0 % Basophils (%) (Auto) 0.8 % 0.2 % Neutrophils # (Auto) 6.70 K/uL 8.44 K/uL Lymphocytes # (Auto) 2.05 K/uL 1.10 K/uL Monocytes # (Auto) 0.75 K/uL 0.12 K/uL Eosinophils # (Auto) 0.10 K/uL 0.00 K/uL Basophils # (Auto) 0.08 K/uL 0.02 K/uL RDW Standard Deviation 39.9 fL 41.3 fL RDW Coefficient of Variation 12.8 % 12.9 % Immature Granulocyte % (Auto) 0.2 % 0.1 % Immature Granulocyte # (Auto) 0.02 K/uL 0.01 K/uL Red Blood Cell Morphology Unremarkable Prothrombin Time 10.5 SECONDS Prothromb Time International Ratio 1.0 Activated Partial Thromboplast Time 28.6 SECONDS Partial Thromboplastin Ratio 1.1 Sodium Level 142 mmol/L 139 mmol/L Potassium Level 3.1 mmol/L 3.7 mmol/L Chloride Level 108 mmol/L 107 mmol/L Carbon Dioxide Level 26 mmol/L 25 mmol/L Anion Gap 8.0 mmol/L 7.0 mmol/L Blood Urea Nitrogen 9 mg/dl 9 mg/dl Creatinine 0.86 mg/dl 0.95 mg/dl Est Creatinine Clear Calc Drug Dose 97.6 ml/min 91.5 ml/min Estimated GFR () 103.6 91.9 Estimated GFR (Non- 89.4 79.3 BUN/Creatinine Ratio 10.8 9.1 Random Glucose 98 mg/dl 151 mg/dl Calcium Level 8.6 mg/dl 8.7 mg/dl Magnesium Level 1.9 mg/dl 2.1 mg/dl Total Bilirubin 0.6 mg/dl 0.5 mg/dl Aspartate Amino Transf (AST/SGOT) 12 U/L 9 U/L Alanine Aminotransferase (ALT/SGPT) 27 U/L 24 U/L Alkaline Phosphatase 82 U/L 91 U/L Total Protein 7.1 gm/dl 7.6 gm/dl Albumin 3.4 gm/dl 3.4 gm/dl Globulin 3.7 gm/dl Albumin/Globulin Ratio 0.9 Thyroid Stimulating Hormone (TSH) 1.320 uIu/ml Lyme Disease IgG Antibody NEG Lyme Disease IgM Antibody NEG CSF Color COLORLESS CSF Appearance CLEAR CSF WBC 100 /uL CSF RBC 7 /uL CSF Xanthrochromic NO XANTHOCHROMIA CSF Cell Count Tube # 4 CSF Mononuclear WBCs % 71.6 % CSF Polynuclear WBCs (%) 28.4 % CSF Chemistry Tube # 2 CSF Glucose 54 mg/dl CSF Total Protein 63.9 mg/dl Direct Bilirubin 0.1 mg/dl Assessment & Plan Patient with meningitis, likely of viral origin. Patient's CSF culture is pending. Currently on IV Ceftriaxone, Vancomycin, and Acyclovir which is appropriate pending culture results. The patient most likely with enterovirus or echovirus meningitis following her daughter's recent GI related illness. She could also have herpes meningitis with history of cold sores. We will continue to follow and adjust therapy as workup is available. PROVIDER ADDENDUM: patient examined and reviewed with Ms. Skaggs. Agree with above assessment. ``
[2017-03-23] MEDS: CEFTRIAXONE SOD INJ 2,000 MG in DEXTROSE 5% 50ML 50 ML IV SCH ×2 (11:28→23:14)
--- NOTE | 2017-03-23 11:39 | Family Medicine Progress Note ---
Progress Note Date of Service March 23, 2017. Subjective Pt evaluation today including: conversation w/ patient, physical exam, chart review, lab review Pain: better PO Intake: good Voiding: no voiding problems 32-year-old female with past medical history of Mnire's disease presented to the ED to complains of a headache which he thought was the worst headache in her life which woke her up from sleep last night. She described the headache as a 10 /10 associated with neck stiffness. She tried Imitrex and over-the- counter medications which did not seem to help with the pain. She also complained about photophobia and painful extraocular movements. In the ER a head CT was negative for any acute process, a lumbar puncture revealed elevated white blood cells and she was admitted for further evaluation of meningitis. Today she states that her headache is better and the neck stiffness is also improved. She denies any fevers or chills, had photophobia yesterday but is better now. Pain with eye movements is better now denies any blurring of vision , slurring of speech, weakness, numbness or tingling, chest pain, shortness of breath, palpitations. Denied any memory of tick bites recently Constitutional: No chills, No fever Eyes: + eye pain (improved), No worsening of vision ENT: + problem reported (photophobia improved), No hearing loss Respiratory: No cough, No sputum Cardiovascular: No chest pain Abdomen: No diarrhea, No nausea, No pain, No vomiting Musculoskeletal: + problem reported (neck stiffness improved) Neurologic: No memory loss, No numbness/tingling, No vertigo, No weakness Psychiatric: No depression symptoms Heme: No abnormal bleeding/bruising Medications Current Inpatient Medications Medications (Trade) Dose Ordered Sig/Les Route Start Time Stop Time Status Last Admin Dose Admin Ceftriaxone Sodium 2000 mg/ Dextrose 70 ml @ 100 mls/hr Q12H IV 03/23/17 12:00 04/02/17 11:59 Dexamethasone Sodium Phosphate 4 mg/Syringe 1 ml @ 1 mls/min Q6H IV 03/23/17 06:00 04/22/17 05:59 03/23/17 06:23 1 MLS/MIN Potassium Chloride/Sodium Chloride (Nss + 20meq KCl 1000ml) 1,000 ml @ 100 mls/hr Q10H IV 03/23/17 01:30 04/22/17 01:29 5/5/17 02:03 100 MLS/HR Acetaminophen (Tylenol Tab) 650 mg Q4H PRN PO 03/23/17 00:15 04/22/17 00:14 Zolpidem Tartrate (Ambien Tab) 5 mg HSZ PRN PO 03/23/17 00:15 04/22/17 00:14 Ondansetron HCl (Zofran Inj) 4 mg Q6H PRN IV 03/23/17 00:15 04/22/17 00:14 Hydromorphone HCl (Dilaudid Inj) 1 mg Q2H PRN IV 03/23/17 00:15 04/06/17 00:14 Hydromorphone HCl (Dilaudid Inj) 0.5 mg Q2H PRN IV 03/23/17 00:15 04/06/17 00:14 03/23/17 02:03 0.5 MG Acyclovir Sodium 1 ea 1 ea UD PRN N/A 03/23/17 02:30 04/22/17 02:29 Acyclovir Sodium/ Dextrose (Zovirax Inj/D5 100ml) 110 ml @ 100 mls/hr Q8H IV 03/23/17 10:00 04/02/17 09:59 03/23/17 09:31 100 MLS/HR Vancomycin HCl 1 ea 1 ea UD PRN N/A 03/23/17 02:45 04/22/17 02:44 Vancomycin HCl/ Sodium Chloride (Vancomycin Inj/ Nss 500ml) 530 ml @ 200 mls/hr Q8@0200,1000,1800 IV 03/23/17 10:00 04/02/17 09:59 03/23/17 09:30 200 MLS/HR Objective Vital Signs Date Time Temp Pulse Resp B/P Pulse Ox O2 Delivery O2 Flow Rate FiO2 03/23/17 08:57 36.7 93 20 105/70 95 Room Air 03/23/17 08:00 Room Air 03/23/17 04:00 Room Air 03/23/17 03:38 36.5 79 17 107/69 97 Room Air 03/23/17 01:31 Room Air 03/23/17 00:50 36.7 70 18 103/65 96 Room Air 03/22/17 23:00 70 16 110/67 96 Room Air 03/22/17 22:03 64 16 125/76 96 Room Air 03/22/17 20:32 81 16 115/78 95 Room Air 03/22/17 19:29 86 24 139/82 100 Room Air 03/22/17 18:21 37.4 95 20 123/68 98 Room Air Physical Exam General Appearance: WD/WN, + mild distress Eyes: normal inspection ENT: normal ENT inspection, hearing grossly normal Neck: supple Respiratory/Chest: chest non-tender, lungs clear, normal breath sounds, no respiratory distress, no accessory muscle use Cardiovascular: regular rate, rhythm Abdomen: normal bowel sounds, non tender, soft Extremities: normal range of motion, no pedal edema Neurologic/Psychiatric: picker tender helper II-XII nml as tested, no motor/sensory deficits, alert, normal mood/affect, oriented x 3 Skin: normal color Laboratory Results 03/23/17 06:17 Red Blood Count 4.57, Mean Corpuscular Volume 86.9, Mean Corpuscular Hemoglobin 29.1, Mean Corpuscular Hemoglobin Concent 33.5, Mean Platelet Volume 10.2, Neutrophils (%) (Auto) 87.1, Lymphocytes (%) (Auto) 11.4, Monocytes (%) (Auto) 1.2, Eosinophils (%) (Auto) 0.0, Basophils (%) (Auto) 0.2, Neutrophils # (Auto) 8.44, Lymphocytes # (Auto) 1.10, Monocytes # (Auto) 0.12, Eosinophils # (Auto) 0.00, Basophils # (Auto) 0.02 03/23/17 06:17 Test 03/22/17 19:20 03/22/17 20:06 03/22/17 22:46 03/23/17 06:17 Urine Color YELLOW Urine Appearance CLEAR (CLEAR) Urine pH 7.5 (4.5-7.5) Urine Specific [place] 1.003 (1.000-1.030) Urine Protein NEG (NEG) Urine Glucose (UA) NEG (NEG) Urine Ketones NEG (NEG) Urine Occult Blood NEG (NEG) Urine Nitrite NEG (NEG) Urine Bilirubin NEG (NEG) Urine Urobilinogen NEG (NEG) Urine Leukocyte Esterase TRACE (NEG) Urine WBC (Auto) 1-5 /hpf (0-5) Urine RBC (Auto) 0-4 /hpf (0-4) Urine Hyaline Casts (Auto) 0 /lpf (0-5) Urine Epithelial Cells (Auto) 10-20 /lpf (0-5) Urine Bacteria (Auto) NEG (NEG) Urine Test NEG (NEG) Red Blood Cell Morphology Unremarkable Prothrombin Time 10.5 SECONDS (9.0-12.0) Prothromb Time International Ratio 1.0 (0.9-1.1) Activated Partial Thromboplast Time 28.6 SECONDS (21.0-31.0) Partial Thromboplastin Ratio 1.1 Globulin 3.7 gm/dl (2.5-4.0) Albumin/Globulin Ratio 0.9 (0.9-2) Thyroid Stimulating Hormone (TSH) 1.320 uIu/ml (0.300-4.500) Lyme Disease IgG Antibody NEG (NEG) Lyme Disease IgM Antibody NEG (NEG) CSF Color COLORLESS CSF Appearance CLEAR CSF WBC 100 /uL (0-5) CSF RBC 7 /uL (0) CSF Xanthrochromic NO XANTHOCHROMIA CSF Cell Count Tube # 4 CSF Mononuclear WBCs % 71.6 % CSF Polynuclear WBCs (%) 28.4 % CSF Chemistry Tube # 2 CSF Glucose 54 mg/dl (40-70) CSF Total Protein 63.9 mg/dl (15.0-45.0) White Blood Count 9.69 K/uL (4.8-10.8) Red Blood Count 4.57 M/uL (4.2-5.4) Hemoglobin 13.3 g/dL (12.0-16.0) Hematocrit 39.7 % (37-47) Mean Corpuscular Volume 86.9 fL (80-100) Mean Corpuscular Hemoglobin 29.1 pg (25-34) Mean Corpuscular Hemoglobin Concent 33.5 g/dl (32-36) Platelet Count 309 K/uL (130-400) Mean Platelet Volume 10.2 fL (7.4-10.4) Neutrophils (%) (Auto) 87.1 % Lymphocytes (%) (Auto) 11.4 % Monocytes (%) (Auto) 1.2 % Eosinophils (%) (Auto) 0.0 % Basophils (%) (Auto) 0.2 % Neutrophils # (Auto) 8.44 K/uL (1.4-6.5) Lymphocytes # (Auto) 1.10 K/uL (1.2-3.4) Monocytes # (Auto) 0.12 K/uL (0.11-0.59) Eosinophils # (Auto) 0.00 K/uL (0-0.5) Basophils # (Auto) 0.02 K/uL (0-0.2) RDW Standard Deviation 41.3 fL (36.4-46.3) RDW Coefficient of Variation 12.9 % (11.5-14.5) Immature Granulocyte % (Auto) 0.1 % Immature Granulocyte # (Auto) 0.01 K/uL (0.00-0.02) Anion Gap 7.0 mmol/L (3-11) Est Creatinine Clear Calc Drug Dose 91.5 ml/min Estimated GFR () 91.9 Estimated GFR (Non- 79.3 BUN/Creatinine Ratio 9.1 (10-20) Calcium Level 8.7 mg/dl (8.5-10.1) Magnesium Level 2.1 mg/dl (1.8-2.4) Total Bilirubin 0.5 mg/dl (0.2-1) Direct Bilirubin 0.1 mg/dl (0-0.2) Aspartate Amino Transf (AST/SGOT) 9 U/L (15-37) Alanine Aminotransferase (ALT/SGPT) 24 U/L (12-78) Alkaline Phosphatase 91 U/L (45-117) Total Protein 7.6 gm/dl (6.4-8.2) Albumin 3.4 gm/dl (3.4-5.0) Assessment and Plan 32-year-old female with past medical history of Mnire's disease presented to the ER with complaints of headache which she described as a worse headache of her life, neck stiffness which started last night. LP in the ER revealed elevated WBCs and she was admitted for evaluation of meningitis Meningitis: Likely viral - Head CT: No acute process - Lumbar puncture: WBCs at 100, glucose 54, protein at 63.9 - Lyme serology negative - CSF culture pending - Continue ceftriaxone 2 g twice a day, vancomycin , acyclovir 10 mg/kg every 8 hours, Decadron 4 mg every 6 hours - Dilaudid for pain control - Infectious diseases consultation- appreciate recommendations Hypokalemia: On presentation K at 3.1, likely secondary to triamterene/HCTZ for Mnire's disease - Repleted, K today of 3.7 DVT prophylaxis: Encourage ambulation SCDs Full code Disposition: Telemetry, may be transferred to [facility] Discharge planning: home Resident Tracking Resident Involvement: Resident Care Provided Care Provided: Adult Hospital Medicine Reviewed: Pt Seen/Exam by Me History headache and neck stiffness mostly resolved Constitutional: denies: fever Respiratory: negative: short of breath Cardiovascular: denies chest pain Gastrointestinal/Abdominal: negative: abdominal pain General Appearance: no apparent distress Neck: supple Respiratory: lungs clear, no respiratory distress Cardiovascular: regular rate, rhythm Neurologic/Psychiatric: no motor/sensory deficits, alert, oriented x 3 Skin Characteristics: warm/dry Assessment/Plan I have reviewed the medical record and performed a history and physical examination of this patient today. I have discussed the case with Dr Hendricks. The above note reflects my findings, conclusions, and recommendations.
[2017-03-23] MEDS ORDERED: NURSING VERBAL MED ORDER ONE (22:15)
[2017-03-24] MEDS ORDERED: VANCOMYCIN TROUGH SCH (01:30)
[2017-03-24] MEDS ORDERED: VANCOMYCIN TROUGH ONE (01:30)
[2017-03-24] MEDS: ACYCLOVIR SOD INJ 500 MG in DEXTROSE 5% 100ML 100 ML IV SCH ×2 (02:31→10:00)
[2017-03-24] MEDS: VANCOMYCIN INJ 1,500 MG in SODIUM CHLORIDE 0.9% 500ML 500 ML IV SCH ×2 (02:31→10:00)
[2017-03-24 03:49] VITALS: BP 104/68; PULSE 76; TEMP 36.4; O2SAT 95
[2017-03-24] MEDS: DEXAMETHASONE INJ 4 MG in SYRINGE 0 ML IV SCH (05:28)
[2017-03-24 07:08] LABS: ALT/SGPT 22 U/L (12-78); AST/SGOT 6 U/L (15-37); BLOOD UREA NITROGEN 13 mg/dl (7-18); BUN/CREATININE RATIO 16.1 (10-20); CALCIUM 8.4 mg/dl (8.5-10.1); CARBON DIOXIDE 25 mmol/L (21-32); CHLORIDE 110 mmol/L (98-107); CREATININE 0.81 mg/dl (0.60-1.20); GLUCOSE 126 mg/dl (70-99); MAGNESIUM 2.1 mg/dl (1.8-2.4); POTASSIUM 3.7 mmol/L (3.5-5.1); SODIUM 142 mmol/L (136-145)
[2017-03-24 07:11] LABS: ALKALINE PHOSPHATASE 75 U/L (45-117)
[2017-03-24 07:16] LABS: BASO ABS # 0.01 K/uL (0-0.2); COMPLETE YES; HEMATOCRIT 36.2 % (37-47); IG% 0.4 %; LYMPH % 7.4 %; LYMPH ABS # 1.69 K/uL (1.2-3.4); MEAN CELL VOLUME 87.2 fL (80-100); MEAN CORPUSCULAR HEMOGLOBIN 29.2 pg (25-34); MEAN CORPUSCULAR HGB CONC 33.4 g/dl (32-36); MEAN PLATELET VOLUME 10.7 fL (7.4-10.4); MONO % 3.7 %; NEUT % 88.5 %; PLATELET COUNT 338 K/uL (130-400); RED BLOOD COUNT 4.15 M/uL (4.2-5.4); WHITE BLOOD COUNT 22.99 K/uL (4.8-10.8)
[2017-03-24 07:55] VITALS: BP 105/69; PULSE 71; TEMP 36.6; O2SAT 92
--- NOTE | 2017-03-24 08:43 | Pharmacy Progress Note ---
Pharmacy Antibiotic Prog Note Date of Service March 24, 2017. Subjective The patient is currently receiving IV Vanco and IV Acyclovir per pharmacy consult The patient is currently on day # 2 of 10 IV therapy. Objective Height (Feet): 5 Height (Inches): 2.00 Weight (Kilograms): 97.500 Levels: Item Value Date Time Vancomycin Level Trough 22.1 mcg/ml 03/24/17 0125 Lab Results (24hrs): Test 03/23/17 17:55 03/24/17 01:25 03/24/17 06:03 03/24/17 08:22 Vancomycin Level Trough 22.1 mcg/ml (SEE COMMENT) White Blood Count 22.99 K/uL (4.8-10.8) Red Blood Count 4.15 M/uL (4.2-5.4) Hemoglobin 12.1 g/dL (12.0-16.0) Hematocrit 36.2 % (37-47) Mean Corpuscular Volume 87.2 fL (80-100) Mean Corpuscular Hemoglobin 29.2 pg (25-34) Mean Corpuscular Hemoglobin Concent 33.4 g/dl (32-36) Platelet Count 338 K/uL (130-400) Mean Platelet Volume 10.7 fL (7.4-10.4) Neutrophils (%) (Auto) 88.5 % Lymphocytes (%) (Auto) 7.4 % Monocytes (%) (Auto) 3.7 % Eosinophils (%) (Auto) 0.0 % Basophils (%) (Auto) 0.0 % Neutrophils # (Auto) 20.35 K/uL (1.4-6.5) Lymphocytes # (Auto) 1.69 K/uL (1.2-3.4) Monocytes # (Auto) 0.84 K/uL (0.11-0.59) Eosinophils # (Auto) 0.00 K/uL (0-0.5) Basophils # (Auto) 0.01 K/uL (0-0.2) RDW Standard Deviation 42.5 fL (36.4-46.3) RDW Coefficient of Variation 13.2 % (11.5-14.5) Immature Granulocyte % (Auto) 0.4 % Immature Granulocyte # (Auto) 0.10 K/uL (0.00-0.02) Sodium Level 142 mmol/L (136-145) Potassium Level 3.7 mmol/L (3.5-5.1) Chloride Level 110 mmol/L (98-107) Carbon Dioxide Level 25 mmol/L (21-32) Anion Gap 7.0 mmol/L (3-11) Blood Urea Nitrogen 13 mg/dl (7-18) Creatinine 0.81 mg/dl (0.60-1.20) Est Creatinine Clear Calc Drug Dose 108.7 ml/min Estimated GFR () 111.4 Estimated GFR (Non- 96.1 BUN/Creatinine Ratio 16.1 (10-20) Random Glucose 126 mg/dl (70-99) Calcium Level 8.4 mg/dl (8.5-10.1) Magnesium Level 2.1 mg/dl (1.8-2.4) Total Bilirubin 0.3 mg/dl (0.2-1) Direct Bilirubin < 0.1 mg/dl (0-0.2) Aspartate Amino Transf (AST/SGOT) 6 U/L (15-37) Alanine Aminotransferase (ALT/SGPT) 22 U/L (12-78) Alkaline Phosphatase 75 U/L (45-117) Total Protein 6.8 gm/dl (6.4-8.2) Albumin 3.0 gm/dl (3.4-5.0) Micro Results: Item Value Date Time Gram Stain - Final Resulted 03/22/17 2246 Cerebral Spinal Fluid MANY WBCs SEEN Assessment & Plan Pt is a 32yo F p/w worsening headache concurrently with photosensitivity. Pt does not have a h/o of MDRO. LP from 03/23/17 yielded WBC 100 cells/mm^3, glucose of 54mg/dL, proteins 63.9mg/dL. This is potentially indicative of viral meningitis. This pt is experiencing leukocytosis with a left shift; she is afebrile. Renal fxn has improved since yesterday. eCrCl going from 98->109cc/min . Pt population p'kinetics: ke=0.0948, t1/2=7.3. Her BMI is concerning for Vanco accumulation; however, bc we are treating potential meningitis and her renal fxn has improved, I will continue with the current regimen and re-check Vanco trough on 03/25/17 . Current dosing regimen: Vanco 1500mg (~16mg/kg) q8hrs. Thank you for consulting the pharmacy kinetic team and including us in the care of Mrs. Damon. Pharmacy will continue to follow and will adjust dose/frequency as necessary. Thank you
[2017-03-24] MEDS ORDERED: ACYC400T PO (10:01)
--- NOTE | 2017-03-24 10:03 | Discharge Instructions ---
Discharge Instructions Date of Service March 24, 2017. Admission Reason for Admission: Hypokalemia, Meningitis Discharge Discharge Diagnosis / Problem: Viral Meningitis Discharge Goals Goal(s): Improve disease control Activity Recommendations Activity Limitations: resume your previous activity . Instructions / Follow-Up Instructions / Follow-Up Follow up with family physician in one week Current Hospital Diet Patient's current hospital diet: Regular Diet Discharge Diet Recommended Diet: Regular Diet Pending Studies Studies pending at discharge: yes List of pending studies: HSV serology Medical Emergencies . Who to Call and When: Medical Emergencies: If at any time you feel your situation is an emergency, please call 911 immediately. . Non-Emergent Contact Non-Emergency issues call your: Primary Care Provider . . "Provider Documentation" section prepared by Evy Hernandez. . VTE Core Measure Inpt VTE Proph given/why not?: SCD's
[2017-03-24 10:11] LABS: HEMATOCRIT 38.4 % (37-47); MEAN CELL VOLUME 86.9 fL (80-100); MEAN CORPUSCULAR HEMOGLOBIN 28.3 pg (25-34); MEAN CORPUSCULAR HGB CONC 32.6 g/dl (32-36); MEAN PLATELET VOLUME 9.9 fL (7.4-10.4); PLATELET COUNT 355 K/uL (130-400); RED BLOOD COUNT 4.42 M/uL (4.2-5.4); WHITE BLOOD COUNT 24.15 K/uL (4.8-10.8)
[2017-03-24] MEDS: CEFTRIAXONE SOD INJ 2,000 MG in DEXTROSE 5% 50ML 50 ML IV SCH (12:00)
[2017-03-24 12:02] VITALS: BP 105/69; PULSE 71; TEMP 36.6; O2SAT 92
--- NOTE | 2017-03-24 13:05 | Discharge Summary ---
Discharge Summary Date of Service March 24, 2017. Discharge Summary Admission Date: March 23, 2017 at 00:47 Discharge Date: March 24, 2017 Discharge Disposition: Home Principal Diagnosis: Viral meningitis Immunizations: Have You Had Influenza Vaccine: Unknown History of Tetanus Vaccine?: Unknown Consultations: MAURAG - ID Medication Reconciliation New Medications: Acyclovir (Acyclovir) 400 Mg Tab 1 TAB PO TID for 10 Days, #30 TAB Continued Medications: Sumatriptan Succinate (Imitrex) 50 Mg Tab 50 MG PO PRN, TAB Triamterene/Hctz (Dyazide 37.5MG/25MG) Cap 1 TAB PO DAILY, CAP Discharge Exam Last 24 Hours Test 03/23/17 17:55 03/24/17 01:25 03/24/17 06:03 03/24/17 11:25 Vancomycin Level Trough 22.1 mcg/ml White Blood Count 22.99 K/uL 24.15 K/uL Red Blood Count 4.15 M/uL 4.42 M/uL Hemoglobin 12.1 g/dL 12.5 g/dL Hematocrit 36.2 % 38.4 % Mean Corpuscular Volume 87.2 fL 86.9 fL Mean Corpuscular Hemoglobin 29.2 pg 28.3 pg Mean Corpuscular Hemoglobin Concent 33.4 g/dl 32.6 g/dl Platelet Count 338 K/uL 355 K/uL Mean Platelet Volume 10.7 fL 9.9 fL Neutrophils (%) (Auto) 88.5 % Lymphocytes (%) (Auto) 7.4 % Monocytes (%) (Auto) 3.7 % Eosinophils (%) (Auto) 0.0 % Basophils (%) (Auto) 0.0 % Neutrophils # (Auto) 20.35 K/uL Lymphocytes # (Auto) 1.69 K/uL Monocytes # (Auto) 0.84 K/uL Eosinophils # (Auto) 0.00 K/uL Basophils # (Auto) 0.01 K/uL RDW Standard Deviation 42.5 fL 42.2 fL RDW Coefficient of Variation 13.2 % 13.1 % Immature Granulocyte % (Auto) 0.4 % Immature Granulocyte # (Auto) 0.10 K/uL Sodium Level 142 mmol/L Potassium Level 3.7 mmol/L Chloride Level 110 mmol/L Carbon Dioxide Level 25 mmol/L Anion Gap 7.0 mmol/L Blood Urea Nitrogen 13 mg/dl Creatinine 0.81 mg/dl Est Creatinine Clear Calc Drug Dose 108.7 ml/min Estimated GFR () 111.4 Estimated GFR (Non- 96.1 BUN/Creatinine Ratio 16.1 Random Glucose 126 mg/dl Calcium Level 8.4 mg/dl Magnesium Level 2.1 mg/dl Total Bilirubin 0.3 mg/dl Direct Bilirubin < 0.1 mg/dl Aspartate Amino Transf (AST/SGOT) 6 U/L Alanine Aminotransferase (ALT/SGPT) 22 U/L Alkaline Phosphatase 75 U/L Total Protein 6.8 gm/dl Albumin 3.0 gm/dl Nucleated RBC Absolute Count (auto) 0.00 K/uL Nucleated Red Blood Cells % 0.0 % Review of Systems: Constitutional: No fever Respiratory: No shortness of breath Cardiovascular: No chest pain Neurologic: No balance problems, No memory loss, No numbness/tingling, No paralysis, No vertigo, No weakness Physical Exam: General Appearance: no apparent distress ENT: normal ENT inspection Neck: supple Respiratory/Chest: lungs clear, no respiratory distress Cardiovascular: regular rate, rhythm Abdomen / GI: normal bowel sounds, non tender, soft Neurologic/Psychiatric: no motor/sensory deficits, alert, oriented x 3 Hospital Course 32-year-old female with past medical history of Mnire's disease presented to the ED to complains of a headache which he thought was the worst headache in her life which woke her up from sleep last night. She described the headache as a 10 /10 associated with neck stiffness. She tried Imitrex and over-the- counter medications which did not seem to help with the pain. She also complained about photophobia and painful extraocular movements. In the ER a head CT was negative for any acute process, a lumbar puncture revealed elevated white blood cells and she was admitted for further evaluation of meningitis. Started on IV antibiotics and dexamethasone. Next morning her headache and neck stiffness resolved CSF culture came back negative. ID consulted. Added HSV serum serology titers which are pending at the time of discharge. Discharged home on oral acyclovir Total Time Spent: Greater than 30 minutes This includes examination of the patient, discharge planning, medication reconciliation, and communication with other providers. Discharge Instructions Please refer to the electronic Patient Visit Report (Discharge Instructions) for additional information. Additional Copies To RV. Nye MD
[2017-03-25] MEDS ORDERED: VANCOMYCIN TROUGH ONE (01:30)
[2017-03-27 14:13] LABS: LYME IGG CSF NO BANDS DETECTED; LYME IGM CSF NO BANDS DETECTED
[2017-03-28 17:31] LABS: HERPES SIMPLEX AB IGG-2 <0.90 INDEX; HSV1 AB IGM Negative (Negative); HSV2 AB IGM Negative (Negative)
== END 2017-03-24 12:51 | disposition home or self-care (01) | DRG 76 ==
LOC: ENRESERVDT → ENRESERVTM → C.EDB 18:11 → C.2T 03-23 00:47
PROVIDERS: ADMIT Hospitalist; ATTEND Family Medicine
PROC: 009U3ZX Drainage of Spinal Canal, Percutaneous Approach, Diagnostic (ICD-10-PCS; principal; 2017-03-22)
DX: A87.9 Viral meningitis, unspecified (principal); E87.6 Hypokalemia; E86.0 Dehydration; H81.09 Meniere's disease, unspecified ear

== ENCOUNTER → 2017-03-28 | Outpatient (CLI) | payer BC ==
[~2017-03-28] MED LIST changes: +ACYC400T PO; -BCPILLS PO; +SUMA50TA15 PO
[2017-03-28 16:40] LABS: BASO % 0.3 %; BASO ABS # 0.07 K/uL (0-0.2); COMPLETE YES; EOS % 1.9 %; HEMATOCRIT 44.1 % (37-47); IG% 1.3 %; LYMPH % 19.8 %; LYMPH ABS # 4.08 K/uL (1.2-3.4); MEAN CELL VOLUME 86.3 fL (80-100); MEAN CORPUSCULAR HEMOGLOBIN 29.2 pg (25-34); MEAN CORPUSCULAR HGB CONC 33.8 g/dl (32-36); MEAN PLATELET VOLUME 10.3 fL (7.4-10.4); MONO % 7.9 %; NEUT % 68.8 %; PLATELET COUNT 459 K/uL (130-400); RED BLOOD COUNT 5.11 M/uL (4.2-5.4); WHITE BLOOD COUNT 20.63 K/uL (4.8-10.8)
[2017-03-28 16:42] LABS: URINE APPEARANCE CLEAR (CLEAR); URINE BILIRUBIN NEG (NEG); URINE COLOR YELLOW; URINE EPITHELIAL CELL AUTO >30 /lpf (0-5); URINE NITRITE NEG (NEG); URINE PH 6.5 (4.5-7.5); URINE SPECIFIC GRAVITY 1.014 (1.000-1.030); UROBILINOGEN NEG (NEG); ZZUR CULT IF INDIC CLEAN CATCH NO
[2017-03-28 16:46] LABS: MANUAL MICROSCOPIC REQUIRED? NO; REVIEW REQ? NO
== END | disposition home or self-care (01) ==
LOC: C.LAB1850 15:43
PROVIDERS: ATTEND Physician Assistant
DX: A87.9 Viral meningitis, unspecified (principal); R30.0 Dysuria

== ENCOUNTER → 2017-07-03 | Outpatient (CLI) | payer BC ==
[~2017-07-03] MED LIST changes: -ACYC400T PO
== END | disposition home or self-care (01) ==
LOC: C.PATHSPEC 17:14
PROVIDERS: ATTEND Dermatology
DX: D23.5 Other benign neoplasm of skin of trunk (principal)

== ENCOUNTER → 2017-08-28 | Outpatient (CLI) | payer BC ==
[2017-08-28 18:03] LABS: URINE APPEARANCE CLEAR (CLEAR); URINE BILIRUBIN NEG (NEG); URINE COLOR YELLOW; URINE NITRITE NEG (NEG); URINE PH 7.5 (4.5-7.5); URINE SPECIFIC GRAVITY 1.013 (1.000-1.030); UROBILINOGEN NEG (NEG)
[2017-08-28 18:08] LABS: MANUAL MICROSCOPIC REQUIRED? NO; REVIEW REQ? NO
== END | disposition home or self-care (01) ==
LOC: C.LABBFT 14:04
PROVIDERS: ATTEND Obstetrics & Gynecology
DX: R39.9 Unspecified symptoms and signs involving the genitourinary system (principal)

== ENCOUNTER → 2017-08-30 | Outpatient (CLI) | payer BC | END | disposition home or self-care (01) | LOC: C.PATHSPEC 16:25 | PROVIDERS: ATTEND Dermatology | DX: L90.5 Scar conditions and fibrosis of skin (principal) ==

== ENCOUNTER → 2017-09-10 | Outpatient (CLI) | payer BC | END | disposition home or self-care (01) | LOC: C.PAPS 16:30 | PROVIDERS: ATTEND Obstetrics & Gynecology | DX: Z01.419 Encounter for gynecological examination (general) (routine) without abnormal findings (principal) ==

== ENCOUNTER → 2017-10-15 | Outpatient (CLI) | payer BC ==
[2017-10-15 13:12] LABS: URINE APPEARANCE CLEAR (CLEAR); URINE BILIRUBIN NEG (NEG); URINE COLOR YELLOW; URINE EPITHELIAL CELL AUTO >30 /lpf (0-5); URINE NITRITE NEG (NEG); URINE SPECIFIC GRAVITY 1.016 (1.000-1.030); UROBILINOGEN NEG (NEG)
[2017-10-15 13:22] LABS: MANUAL MICROSCOPIC REQUIRED? NO; REVIEW REQ? NO
== END | disposition home or self-care (01) ==
LOC: C.LAB1850 10:16
PROVIDERS: ATTEND Obstetrics & Gynecology
DX: R39.9 Unspecified symptoms and signs involving the genitourinary system (principal)

== ENCOUNTER → 2017-12-21 | Outpatient (CLI) | payer BC | END | disposition home or self-care (01) | LOC: C.LAB1850 13:56 | PROVIDERS: ATTEND Family Medicine | DX: R53.83 Other fatigue (principal) ==

== ENCOUNTER → 2018-03-11 | Outpatient (CLI) | payer BC ==
--- NOTE | 2018-03-11 17:11 | DIAGNOSTIC IMAGING REPORT ---
L-SPINE MIN 4 VIEWS ROUTINE HISTORY: Pain. Radiculopathy. M54.5 Low back [id number] COMPARISON: None. FINDINGS: There is no fracture. No subluxation. Disc spaces are preserved. IMPRESSION: No fracture or subluxation within the lumbar spine. The above report was generated using voice recognition software. It may contain grammatical, syntax or spelling errors. Electronically signed by: Joshua Sheth M.D. 03/11/2018 5:10 PM Dictated Date/Time: 03/11/2018 5:09 PM
== END | disposition home or self-care (01) ==
LOC: C.LAB1850 16:00
PROVIDERS: ATTEND Physician Assistant
DX: M54.5 Low back pain (principal)

== ENCOUNTER → 2018-04-04 | Outpatient (CLI) | payer OTHER ==
--- NOTE | 2018-04-04 20:03 | DIAGNOSTIC IMAGING REPORT ---
MRI OF THE LUMBAR SPINE WITHOUT IV CONTRAST CLINICAL HISTORY: Chronic low back pain. COMPARISON STUDY: Radiographs of the lumbar spine dated 03/11/2018. Abdominal CT dated 10/11/2012. TECHNIQUE: MRI of lumbar spine is performed utilizing various T1 and T2-weighted sequences in the axial and sagittal planes. IV contrast was not administered for this examination. FINDINGS: Lumbar spine: Vertebral body height and alignment are maintained throughout the lumbar spine. Normal marrow signal intensity is preserved throughout the visualized osseous structures. The transverse and spinous processes are intact. There is no evidence of spondylolysis. No destructive bony lesion is seen. Intervertebral discs: Normal in height and signal intensity. Spinal cord: The visualized spinal cord is normal in morphology and signal intensity. The conus medullaris terminates at the T12-L1 interspace. The nerve roots of the cauda equina are normal in morphology. L1-L2: Unremarkable. L2-L3: Unremarkable. L3-L4: Unremarkable. L4-L5: There is minimal left lateral disc bulge with annular fissure. This causes mild left-sided subarticular stenosis. The central canal and neural foramina are patent. L5-S1: Unremarkable. Sacrum: The visualized sacrum is normal in morphology and signal intensity. Soft tissues: The paraspinous soft tissues are within normal limits. The visualized retroperitoneal structures are normal as visualized but incompletely evaluated. IMPRESSION: 1. There is no disc herniation, central canal stenosis, or neural foraminal narrowing seen throughout the lumbar spine. 2. No destructive bony process is identified. 3. Mild degenerative disc disease at L4-L5 as above. Dictated: 04/04/2018 7:44 PM Transcribed: 04/04/2018 8:03 PM GLEN_Rita Electronically signed by: Regulo Andrews M.D. 04/04/2018 8:18 PM Dictated Date/Time: 04/04/2018 7:44 PM
== END | disposition home or self-care (01) ==
LOC: C.MRI 18:57
PROVIDERS: ATTEND Physician Assistant
DX: M51.36 Other intervertebral disc degeneration, lumbar region (principal)

== ENCOUNTER → 2018-04-10 | Outpatient (CLI) | payer OTHER ==
[2018-04-10 10:37] LABS: BASO % 0.9 %; BASO ABS # 0.06 K/uL (0-0.2); EOS % 2.3 %; EOS ABS # 0.15 K/uL (0-0.5); HEMATOCRIT 39.9 % (37-47); HEMOGLOBIN 13.6 g/dL (12.0-16.0); IG# 0.02 K/uL (0.00-0.02); LYMPH % 27.8 %; MEAN CELL VOLUME 83.8 fL (80-100); MEAN CORPUSCULAR HEMOGLOBIN 28.6 pg (25-34); MEAN CORPUSCULAR HGB CONC 34.1 g/dl (32-36); MEAN PLATELET VOLUME 10.2 fL (7.4-10.4); MONO % 6.9 %; MONO ABS # 0.45 K/uL (0.11-0.59); NEUT % 61.8 %; PLATELET COUNT 329 K/uL (130-400); RED CELL DISTRIBUTION WIDTH CV 12.9 % (11.5-14.5); RED CELL DISTRIBUTION WIDTH SD 39.1 fL (36.4-46.3); WHITE BLOOD COUNT 6.48 K/uL (4.8-10.8)
[2018-04-10 11:09] LABS: ALBUMIN 3.5 gm/dl (3.4-5.0); ALKALINE PHOSPHATASE 85 U/L (45-117); ALT/SGPT 25 U/L (12-78); AST/SGOT 12 U/L (15-37); BLOOD UREA NITROGEN 10 mg/dl (7-18); CALCIUM 8.7 mg/dl (8.5-10.1); CARBON DIOXIDE 26 mmol/L (21-32); CREATININE 0.87 mg/dl (0.60-1.20); GLUCOSE 89 mg/dl (70-99); POTASSIUM 3.7 mmol/L (3.5-5.1); SODIUM 138 mmol/L (136-145); TOTAL PROTEIN 7.6 gm/dl (6.4-8.2)
== END | disposition home or self-care (01) ==
LOC: C.LAB1850 09:09
PROVIDERS: ATTEND Physician Assistant
DX: R39.9 Unspecified symptoms and signs involving the genitourinary system (principal); M79.9 Soft tissue disorder, unspecified; M54.5 Low back pain; M25.50 Pain in unspecified joint